=== PATIENT | male | born 1955 | race African-American/Black ===

== ENCOUNTER 2017-05-13 14:05 | Emergency (ER) | payer OTHER ==
[~2017-05-13] VITALS: Ht 180.3 cm; Wt 79.8 kg
[~2017-05-13 14:05] MED LIST: INSU70IN9 SC
[2017-05-13 14:09] VITALS: BP 149/88
== END 2017-05-13 18:40 | disposition left against medical advice (07) ==
LOC: ER 14:05 → EDBD 14:05 → ER 18:40
DX: M79.602 Pain in left arm (principal); Z53.21 Procedure and treatment not carried out due to patient leaving prior to being seen by health care provider

== ENCOUNTER 2019-10-28 10:08 | Inpatient (IN) | payer MEDICAID ==
[~2019-10-28] VITALS: Ht 180.3 cm; Wt 86.3 kg
[~2019-10-28 10:08] MED LIST changes: +ASPI-404 PO; +B-CO-5 OR; +BUSP15TA60 PO; +ERGO1CAP6 PO; +FERR1TAB17 PO; +FURO1TAB31 PO; +HCTZ25T PO; +ISOS20TA56 PO; +LEVO500T21 PO; +POTA-180 PO; +RANI300T PO; +SEVE800T8 PO; +SIMV-8 PO; +TRAZ50TA2 PO; +[UNRECOGNIZED DRUG - CODE]
[2019-10-28 11:01] LABS: Basophils # (auto) 0.1 10 ^3/uL (0-0.2); Basophils % (auto) 0.6 % (0.0-2.0); Eosinophils # (auto) 0.2 10 ^3/uL (0-0.8); Eosinophils % (auto) 1.8 % (0.0-7.0); Hematocrit 33.3 % (41.0-53.0); Lymphocytes # (auto) 2.1 10 ^3/uL (0.4-5.4); Lymphocytes % (auto) 22.7 % (10.0-50.0); Mean Corpuscular Hgb Conc. 33.1 g/dL (32.0-36.0); Mean Corpuscular Volume 99.8 fL (80.0-100.0); Monocytes # (auto) 0.6 10 ^3/uL (0-1.3); Monocytes % (auto) 6.5 % (0.0-12.0); Neutrophils # (auto) 6.3 10 ^3/uL (1.6-8.6); Neutrophils % (auto) 68.4 % (37.0-80.0); Platelet Count (auto) 265 10^3/uL (140-450); Red Blood Cells 3.34 10^6/uL (4.5-5.90); Red Cell Distribution Width 16.4 % (11.8-14.3); White Blood Cell 9.2 10^3/uL (4.4-10.8)
[2019-10-28 11:18] LABS: Albumin 3.4 g/dL (3.4-5.0); Calcium 8.2 mg/dL (8.5-10.1); Potassium 4.3 mmol/L (3.5-5.1)
[2019-10-28 11:23] LABS: BUN/Creatinine Ratio 7.7; Bilirubin, Total 0.4 mg/dL (0.2-1.0)
[2019-10-28] MEDS ORDERED: traMADol HCL 50 MG TAB PO PRN (12:45)
[2019-10-28] MEDS ORDERED: LABETALOL HCL 5 MG/ML ML 20ML VIAL IV PRN (12:45)
[2019-10-28] MEDS ORDERED: NITROGLYCERIN 0.4 MG SL TAB SL PRN (12:45)
[2019-10-28] MEDS ORDERED: DEXTROSE (50%) 50ML SYRG IV PRN (12:45)
[2019-10-28] MEDS ORDERED: LACTULOSE 20Gm/30ML SOLN PO PRN (12:45)
[2019-10-28] MEDS ORDERED: MORPHINE SULF INJ 2 MG/ML SYRINGE 1ML IV PRN (12:45)
[2019-10-28] MEDS ORDERED: ACETAMINOPHEN 500 MG TAB PO PRN (12:45)
[2019-10-28] MEDS ORDERED: PROMETHAZINE HCL 25 MG/ML 1ML IV PRN (12:45)
--- NOTE | 2019-10-28 15:45 | NUR ---
Patient resting in bed, receiving dialysis at this time, vs stable, will continue to monitor.
[2019-10-28] MEDS ORDERED: SODIUM CHL 0.9% 1000 ML BAG XX ONE (16:00)
[2019-10-28 16:44] VITALS: BP 136/82
[2019-10-28] MEDS: ISOSORBIDE DINITRATE 10 MG TAB PO SCH (17:00)
[2019-10-28] MEDS: ACCU-CHEK COMFORT CURVE STRIP VI SCH ×2 (18:16→20:18)
[2019-10-28] MEDS: SEVELAMER 800 MG TAB PO SCH (18:20)
--- NOTE | 2019-10-28 19:30 | NUR ---
Opening Shift Note Received report from henok Singh RN. Assumed care of patient, awake and alert, but confused. No S/S of distress/SOB or pain. Instructed on POC and to call for assist PRN, will continue to monitor for changes Q1hr and PRN.
[2019-10-28 20:00] VITALS: BP 139/79
--- NOTE | 2019-10-28 20:10 | NUR ---
Opening Shift Note Assumed care of patient, awake and alert. No S/S of distress/SOB or pain. Patient is on room air. Respirations even and unlabored. Patient refusing assessment at this time. Patient will not let this RN go near him and stated to "go away" and to "leave the room right now." Instructed on POC and to call for assist PRN, will continue to monitor for changes Q1hr and PRN. Addendum: 10/29/19 at 2310 by Harini Live RN Correct date is 10/29/19
[2019-10-28] MEDS: QUEtiapine FUMARATE 100 MG TAB PO SCH (21:51)
[2019-10-28] MEDS: ATORVASTATIN 20 MG TAB PO SCH (21:51)
[2019-10-28] MEDS: traZODone HCL 50 MG TAB PO SCH (21:52)
[2019-10-28] MEDS: busPIRone HCL 10 MG TAB PO SCH (21:52)
[2019-10-28 22:00] VITALS: BP 139/79
--- NOTE | 2019-10-28 23:00 | NUR ---
[employer] MONEY FOUND IN PATIENT'S POCKET WHILE CLEANING PATIENT AND CHANGING HIS CLOTHES, CLINICAL TRAINING COORDINATOR AND RN FOUND SOME MONEY IN PATIENT'S SOILED PANTS POCKET. CLINICAL TRAINING COORDINATOR, VENANCIO AND NURSE, RAÚL COUNTED MONEY AND WITNESSED BY ANOTHER RN, NONI. PATIENT IS SLEEPING AND CONFUSED AT THIS TIME AND UNABLE TO SIGN ENVELOPE. MONEY PLACED IN AN ENVELOPE, PICKED UP BY HOUSE SUPP WITH THE CORRECT AMOUNT AND CORRESPONDING DENOMINATIONS.
--- NOTE | 2019-10-29 00:35 | NUR ---
PATIENT REFUSED BLOOD SUGAR CHECK.
[2019-10-29] MEDS: ACCU-CHEK COMFORT CURVE STRIP VI SCH ×7 (03:42→23:39)
--- NOTE | 2019-10-29 04:07 | NUR ---
PATIENT REFUSED BLOOD SUGAR CHECK. PATIENT IS RESTING IN BED WITH EYES CLOSED BUT RESPONDS AND YELLS "NO NO NO" WHEN ASK TO CHECK BLOOD SUGAR. WILL MONITOR
[2019-10-29 05:45] VITALS: BP 136/52
[2019-10-29] MEDS: ISOSORBIDE DINITRATE 10 MG TAB PO SCH ×3 (06:38→16:55)
--- NOTE | 2019-10-29 07:39 | NUR ---
Opening Note Assumed pt care from [facility] nurse. Pt is a/ox4 with no s/s of distress or SOB. Pt is currently laying in bed with no complaints at this time. Pt is currently refusing assessment and blood sugar check stating "don't wake me...leave me alone". Will attempt to do assessment later. Sitter is present at bedside. Safety measures maintained with call light within reach, bed in lowest position and side rails up. Will continue to monitor.
--- NOTE | 2019-10-29 08:39 | NUR ---
Pt Refusing Assessment and VS At this time, pt is still refusing assessment and VS. Pt states "leave me alone, I'm trying to sleep... don't wake me". Both myself and the CONTROL CENTER OPERATOR provided education regarding purpose of assessment and VS; pt still refused. Will continue to monitor and attempt later.
[2019-10-29] MEDS: ENOXAPARIN SOD 30 MG/0.3 ML SYRINGE SC SCH (09:40)
[2019-10-29] MEDS: busPIRone HCL 10 MG TAB PO SCH ×2 (09:48→21:28)
[2019-10-29] MEDS: ASPirin 81 mg TAB PO SCH (09:48)
[2019-10-29] MEDS: FUROSEMIDE 40 MG TAB PO SCH (09:48)
--- NOTE | 2019-10-29 09:51 | NUR ---
Pt Frustrated and Angry Pt agreed to take medications, but stated "why are you making me do stuff...I don't like when people tell me to do stuff". Provided pt with education regarding care and need to provide care while in hospital. Pt still stated that "I still don't like to be told what to do". Will continue to monitor.
--- NOTE | 2019-10-29 11:42 | NUR ---
Pt Refusing 1200 Medications Provided ot with education regarding purpose of; pt still refused. Will notify MD of pt's refusal. Will continue to monitor.
--- NOTE | 2019-10-29 15:48 | NUR ---
Pt Refusing 1600 Accu Check Provided education regarding purpose of, pt still refused. Will continue to monitor.
[2019-10-29 17:00] VITALS: BP 114/74
[2019-10-29] MEDS: SEVELAMER 800 MG TAB PO SCH (17:52)
--- NOTE | 2019-10-29 17:52 | NUR ---
Patient Refused Renagel Discussed pt the next scheduled medication and provided pt with education and purpose of medication. Pt stated "whatever". When further asking pt if her wished to take the medication he said, "it's whatever". Told pt that it was a yes or no question as far as taking the medication pt stated "then no, I won't take it". Will continue to monitor and notify MD of pt's refusal and noncompliance.
--- NOTE | 2019-10-29 20:10 | NUR ---
Opening Shift Note Assumed care of patient, awake and alert. No S/S of distress/SOB or pain. Patient is on room air. Respirations even and unlabored. Patient refusing assessment at this time. Patient will not let this RN go near him and stated to "go away" and to "leave the room right now." Instructed on POC and to call for assist PRN, will continue to monitor for changes Q1hr and PRN. Addendum: 10/29/19 at 2315 by Harini Live RN Patient educated on purpose of assessment. Patient continues to refuse assessment.
--- NOTE | 2019-10-29 20:25 | NUR ---
Patient reports shortness of breath Patients states he feels short of breath. Patient's pulse oximeter reading on room air is 96%. Patient refuses to let this RN assess him and states "bring someone else in." Respiratory therapy paged at this time. Will continue to monitor.
--- NOTE | 2019-10-29 20:34 | NUR ---
Respiratory note: PAGED TO BEDSIDE BY RN. PT APPEARS SOB. OFF O2 POX 92-94% ON RA. HR IN 80-90S. PT STATES HE IS IN PAIN. RN ELISEO AND PSYCHOMETRIST LIANG CAME IN TO BEDSIDE TO ATTEMPT TO GET ASSESSMENT INFORMATION FROM THE PATIENT. PT IMMEDIATELY ANSWERS TO RN HER VERY RUDE AND SCREAMING AT HER TO "GET THE FUCK AWAY FROM HIM!". PT HAS BECAME MORE AGITATED DISMISSING US FROM ROOM. COMMUNICATED TO RNS LIANG AND ELISEO OF [facility] LIMITED FINDINGS AT THIS TIME. RNS AWARE I CAN BE PAGED TO REASSESS AT ANY TIME.
--- NOTE | 2019-10-29 20:40 | NUR ---
Endorsed care to [place] MAYBERRY. Report given. Patient has no S/S of distress/SOB.
--- NOTE | 2019-10-29 21:00 | NUR ---
OPENING NOTE ASSUMING ROLE OF CARE OF PATIENT AT THIS TIME. PATIENT NO LONGER AGITATED AT THIS TIME. PATIENT REQUESTING SLEEPING MEDICATION. PATIENT GIVEN MEDICATION FOR THE NIGHT. PATIENT ALSO PLACED ON 2L NC FOR COMFORT AT THIS TIME. PATIENT EDUCATED ON CHANGE IN STAFFING AND PLAN OF CARE FOR THE NIGHT. PATIENT VERBALIZED UNDERSTANDING. WILL CONTINUE TO MONITOR. BED LOWERED, CALL LIGHT WITHIN REACH, AND PATIENT WILL BE ROUNDED ON EVERY HOUR AND NEEDED. Addendum: 10/29/19 at 2139 by [place] QUINTERO RN VITALS WERE REFUSED AT THIS TIME. PATIENT STATES WANTING TO SLEEP. WILL ATTEMPT AT A LATER TIME. EKG WNL AND PATIENT SHOWING NO SIGN OF DISTRESS AT THIS TIME. WILL CONTINUE TO MONITOR.
[2019-10-29] MEDS: ATORVASTATIN 20 MG TAB PO SCH (21:28)
[2019-10-29] MEDS: traZODone HCL 50 MG TAB PO SCH (21:28)
[2019-10-29] MEDS: QUEtiapine FUMARATE 100 MG TAB PO SCH (21:28)
--- NOTE | 2019-10-29 22:37 | NUR ---
MD VALERIO AT BEDSIDE
--- NOTE | 2019-10-30 03:04 | NUR ---
REPORT GIVEN TO RADHA RN PATIENT RESTING COMFORTABLY AT THIS TIME.
[2019-10-30] MEDS: ACCU-CHEK COMFORT CURVE STRIP VI SCH ×5 (04:00→19:20)
[2019-10-30] MEDS: ISOSORBIDE DINITRATE 10 MG TAB PO SCH ×3 (06:51→17:53)
--- NOTE | 2019-10-30 07:30 | NUR ---
PT AWAKE, ORIENTED TO NAME, . DENIES DISCOMFORT AT MOMENT. PT IS UNCOOPERATIVE OF CARE. MINIMAL COOPERATION WITH ASSESSMENT. SITTER AT BEDSIDE FOR SAFETY. CALL LIGHT WITHIN REACH. BED LOCKED AND IN LOWEST POSITION, CALL LIGHT WITHIN REACH. WILL CONTINUE TO MONITOR.
[2019-10-30] MEDS: ENOXAPARIN SOD 30 MG/0.3 ML SYRINGE SC SCH (11:09)
[2019-10-30] MEDS: FUROSEMIDE 40 MG TAB PO SCH (11:10)
[2019-10-30] MEDS: ASPirin 81 mg TAB PO SCH (11:10)
[2019-10-30] MEDS: busPIRone HCL 10 MG TAB PO SCH ×2 (11:10→21:08)
[2019-10-30] MEDS ORDERED: LORazepam 2MG/ML-1ML VIAL IV PRN (14:15)
--- NOTE | 2019-10-30 15:14 | NUR ---
PT SUSTAINED FALL WHILE IN RESTROOM, PT REPORTS HAVING FALLEN ON KNEES, DENIES HAVING HIT HEAD. PT SHOWS GENERALIZED WEAKNESS, PT POSITION BACK IN BED. PT DENIES PAIN TO KNEES UPON ROM. CHARGE NURSE DALLIN MADE AWARE OF EVENT, PT DENIES XR INTERVENTION OF KNEES, DR. VALERIO MADE AWARE OF EVENT, NO FURTHER ORDERS RECEIVED. V/S: 97.9, 92, 20, 96% ROOM AIR, 131/71 WILL CONTINUE TO MONITOR.
[2019-10-30] MEDS: SEVELAMER 800 MG TAB PO SCH (17:54)
--- NOTE | 2019-10-30 20:00 | NUR ---
OPENING NOTE RECEIVED REPORT FROM DAYSHIFT RN. ASSUMING ROLE OF CARE OF PATIENT AT THIS TIME. PATIENT SHOWING NO SIGN OF DISTRESS, SHORTNESS OF BREATH, AND PATIENT DENIES ANY PAIN AT THIS TIME. PATIENT EDUCATED ON PLAN OF CARE FOR THE NIGHT AND PATIENT VERBALIZED UNDERSTANDING. PATIENT AT THIS TIME STILL REFUSING ALL BLOOD DRAWS AND ONLY WANTS MEDICATION TO HELP HIM SLEEP. BED LOWERED, CALL LIGHT WITHIN REACH, AND PATIENT WILL BE ROUNDED ON EVERY HOUR AND NEEDED.
--- NOTE | 2019-10-30 20:52 | NUR ---
PT AT THIS TIME REFUSING ALL BLOOD DRAWS AND ACCUCHECKS PT STATES THAT "I ALREADY TOLD YOU. ONLY ONCE IN THE MORNING." WILL ATTEMPT AT A LATER TIME.
[2019-10-30] MEDS: QUEtiapine FUMARATE 100 MG TAB PO SCH (21:08)
[2019-10-30] MEDS: ATORVASTATIN 20 MG TAB PO SCH (21:08)
[2019-10-30] MEDS: traZODone HCL 50 MG TAB PO SCH (21:08)
--- NOTE | 2019-10-30 21:45 | NUR ---
MD VALERIO AT BEDSIDE.
[2019-10-30 22:00] VITALS: BP 141/81
[2019-10-31] MEDS: ACCU-CHEK COMFORT CURVE STRIP VI SCH ×6 (04:00→20:00)
[2019-10-31] MEDS: ISOSORBIDE DINITRATE 10 MG TAB PO SCH ×3 (06:05→18:36)
[2019-10-31] MEDS ORDERED: SODIUM CHL 0.9% 1000 ML BAG XX ONE (06:15)
--- NOTE | 2019-10-31 07:15 | NUR ---
HEMODIALYSIS IN PROGRESS. PT AWAKE, ORIENTED, RESPONSIVE TO COMMANDS. MINIMAL COOPERATION WITH CARE. TOLERATING HD THERAPY WELL AT MOMENT. ADVENTURE CHALLENGE INSTRUCTOR AT BEDSIDE, SITTER AT BEDSIDE. BED LOCKED AND IN LOWEST POSITION, CALL LIGHT WITHIN REACH. WILL CONTINUE TO MONITOR.
[2019-10-31 07:28] LABS: Basophils # (auto) 0 10 ^3/uL (0-0.2); Basophils % (auto) 0.3 % (0.0-2.0); Eosinophils # (auto) 0.1 10 ^3/uL (0-0.8); Hematocrit 27.9 % (41.0-53.0); Hemoglobin 9.3 g/dL (13.5-17.5); Lymphocytes # (auto) 1.6 10 ^3/uL (0.4-5.4); Lymphocytes % (auto) 18.7 % (10.0-50.0); Mean Corpuscular Hemoglobin 32.8 pg (28.0-32.0); Mean Corpuscular Hgb Conc. 33.4 g/dL (32.0-36.0); Mean Corpuscular Volume 98.1 fL (80.0-100.0); Monocytes # (auto) 0.7 10 ^3/uL (0-1.3); Monocytes % (auto) 8.3 % (0.0-12.0); Neutrophils # (auto) 6.2 10 ^3/uL (1.6-8.6); Neutrophils % (auto) 71.7 % (37.0-80.0); Platelet Count (auto) 215 10^3/uL (140-450); Red Blood Cells 2.84 10^6/uL (4.5-5.90); Red Cell Distribution Width 16.2 % (11.8-14.3); White Blood Cell 8.6 10^3/uL (4.4-10.8)
[2019-10-31 07:53] LABS: BUN/Creatinine Ratio 7.2; Calcium 8.2 mg/dL (8.5-10.1); Potassium 4.4 mmol/L (3.5-5.1)
[2019-10-31 09:00] VITALS: BP 146/84
--- NOTE | 2019-10-31 09:35 | NUR ---
DIALYSIS COMPLETED. 3000ml OUTPUT.
[2019-10-31] MEDS: ENOXAPARIN SOD 30 MG/0.3 ML SYRINGE SC SCH ×2 (10:00→12:43)
[2019-10-31] MEDS: busPIRone HCL 10 MG TAB PO SCH ×3 (10:00→21:58)
[2019-10-31] MEDS: FUROSEMIDE 40 MG TAB PO SCH ×2 (10:00→12:49)
[2019-10-31] MEDS: ASPirin 81 mg TAB PO SCH ×2 (10:00→12:42)
--- NOTE | 2019-10-31 10:40 | NUR ---
Attempted PT eval but pt refused. Will try again later.
--- NOTE | 2019-10-31 11:20 | NUR ---
1040: PT VOICING TO LEAVE AMA, PT ORIENTED TO NAME, DATE, PLACE. PT REPORTS "DIALYSIS IS DONE AND I FEEL BETTER" EXPLAINED TO PT TO WAIT FOR DR. VALERIO TO COME BY AND SEE HIM FIRST. PT REPORTS "I HAVE TO GO HOME AND TAKE CARE OF MY THAT CANNOT WALK" CHARGE NURSE MADE AWARE OF SITUATION. DR. VALERIO MADE AWARE WELL. PT REFUSES MORNING MEDICATIONS, REFUSED P.T.
--- NOTE | 2019-10-31 12:58 | NUR ---
EXPLAINED TO PT'S RISKS OF LEAVING AMA, INABILITY TO PROVIDE TRANSPORTATION IF LEAVES AMA. PT REPORTS "AT MOMENT, NOT LEAVING AMA" WILL WAIT FOR MD TO ROUND. PT HAS GENERALIZED WEAKNESS. PT MILDLY COOPERATIVE OF CARE, ADMINISTERED MORNING MEDICATIONS, TOLERATED WELL. WILL CONTINUE TO MONITOR.
[2019-10-31 13:00] VITALS: BP 157/89
[2019-10-31 17:00] VITALS: BP 132/77
[2019-10-31] MEDS: SEVELAMER 800 MG TAB PO SCH (18:36)
--- NOTE | 2019-10-31 19:40 | NUR ---
Opening Shift Note Assumed care of patient, awake and alert. No S/S of distress/SOB or pain. Sitter at bedside for safety. Fall and safety precautions in place. Call light within reach and able to use. Instructed on POC and to call for assist PRN, will continue to monitor for changes Q1hr and PRN.
--- NOTE | 2019-10-31 20:00 | NUR ---
ACCU CHECK REFUSAL PATIENT REFUSING ACCU CHECK. PATIENT STATES TO LEAVE HIM ALONE AND THAT HE IS UNWILLING TO HAVE HIS BLOOD SUGAR CHECKED, HOWEVER PATIENT AGREES TO OTHER SCHEDULED MEDICATIONS. PATIENT EDUCATED ON IMPORTANCE/INDICATION FOR BLOOD SUGAR MONITORING, PATIENT VERBALIZED UNDERSTANDING AND CONTINUES TO REFUSE. EDUCATED REINFORCED AGAIN AND PATIENT CONTINUES TO REFUSE. WILL CONTINUE TO MONITOR.
[2019-10-31 21:32] VITALS: BP 132/87
[2019-10-31] MEDS: traZODone HCL 50 MG TAB PO SCH (21:58)
[2019-10-31] MEDS: QUEtiapine FUMARATE 100 MG TAB PO SCH (21:59)
[2019-10-31] MEDS: ATORVASTATIN 20 MG TAB PO SCH (21:59)
[2019-11-01] MEDS: ACCU-CHEK COMFORT CURVE STRIP VI SCH ×4 (04:00→12:15)
[2019-11-01 05:19] VITALS: BP 141/77
--- NOTE | 2019-11-01 06:07 | NUR ---
morning med and lab refusal: Patient is refusing morning med scheduled for 0700. Patient educated on indication for medication and importance of administration. Patient verbalized understanding and continues to refuse. Education reinforced and patient continues to refuse with, "get the hell out." Additionally, patient is refusing AM labs. Will continue to monitor.
[2019-11-01] MEDS: ISOSORBIDE DINITRATE 10 MG TAB PO SCH ×2 (07:00→11:13)
--- NOTE | 2019-11-01 08:55 | NUR ---
DR. TRAN IN TO EVALUATE PT.
[2019-11-01 09:00] VITALS: BP 137/80
[2019-11-01] MEDS ORDERED: HALOPERIDOL LACTATE 5 MG/ML INJ VIAL IM PRN (09:30)
--- NOTE | 2019-11-01 09:30 | NUR ---
PT NON-COOPERATIVE OF CARE REFUSED MRI, AND BLOOD DRAWS.
[2019-11-01] MEDS: ASPirin 81 mg TAB PO SCH (11:11)
[2019-11-01] MEDS: FUROSEMIDE 40 MG TAB PO SCH (11:12)
[2019-11-01] MEDS: ENOXAPARIN SOD 30 MG/0.3 ML SYRINGE SC SCH (11:13)
[2019-11-01] MEDS: busPIRone HCL 10 MG TAB PO SCH (11:13)
[2019-11-01 12:48] VITALS: BP 120/54
--- NOTE | 2019-11-01 14:21 | NUR ---
WHILE HYGIENE CARE PROVIDED, SACRAL PUNCTURE WOUND NOTED. PT COOPERATES WITH ASSESSMENT AT MOMENT. WOUND CLEANSED, PICTURE TAKEN, Z-GUARD APPLIED WITH OPTIFOAM IN PLACE.
--- NOTE | 2019-11-01 14:45 | NUR ---
DR. VALERIO STATES TALKED TO DR. TRAN REGARDING PT'S CONDITION STATUS. PER MD TO CALL DR. TRAN FOR CLEARANCE PRIOR TO DC. DR. TRAN PAGED.
[2019-11-01 16:15] VITALS: BP 138/84
[2019-11-01 16:58] VITALS: BP 138/84
--- NOTE | 2019-11-01 17:40 | NUR ---
DR. TRAN CLEARED PT FOR DC. DISCHARGE INSTRUCTIONS GIVEN TO PT, PT VERBALIZED UNDERSTANDING FOR FOLLOW UP APPOINTMENT AND CONTINUATION OF HOME MEDICATIONS. ALL BELONGING AND MONETARY BELONGINGS RETURNED TO PT. EDUCATIONAL MATERIAL PROVIDED, ALL QUESTIONS AND CONCERNS ADDRESSED. IV CATHETER DC'D CATHETER INTACT, NO PHLEBITIS, TELE BOX REMOVED AND RETURNED TO TELE DEPT. PT SAFELY ESCORTED OUT OF UNIT VIA WHEELCHAIR, NO S/S OF DISTRESS.
== END 2019-11-01 18:00 | disposition home or self-care (01) | DRG 420 ==
LOC: EDBD 10:08 → ER 10:08 → TELE 10:09 → TELE-EAST 14:18
PROVIDERS: ADMIT Internal Medicine; ATTEND Internal Medicine
DX: E11.649 Type 2 diabetes mellitus with hypoglycemia without coma (principal); G93.41 Metabolic encephalopathy; I13.2 Hypertensive heart and chronic kidney disease with heart failure and with stage 5 chronic kidney disease, or end stage renal disease; I50.32 Chronic diastolic (congestive) heart failure; N18.6 End stage renal disease; D63.8 Anemia in other chronic diseases classified elsewhere; E11.22 Type 2 diabetes mellitus with diabetic chronic kidney disease; E78.5 Hyperlipidemia, unspecified; I82.621 Acute embolism and thrombosis of deep veins of right upper extremity; F41.8 Other specified anxiety disorders; Z53.20 Procedure and treatment not carried out because of patient's decision for unspecified reasons; E66.3 Overweight; Z82.49 Family history of ischemic heart disease and other diseases of the circulatory system; Z99.2 Dependence on renal dialysis; Z83.3 Family history of diabetes mellitus; Z81.1 Family history of alcohol abuse and dependence; Z90.49 Acquired absence of other specified parts of digestive tract; Z68.26 Body mass index [BMI] 26.0-26.9, adult; Z79.899 Other long term (current) drug therapy
CPT/HCPCS: 36415; 70450; 71045; 80048; 80053; 82550; 82962; 83036; 84155; 84165; 84484; 85025; 85652; 87081; 90935; 93005; G0378; J1642

== ENCOUNTER 2019-11-20 18:13 | Emergency (ER) | payer MEDICAID ==
[~2019-11-20] VITALS: Ht 180.3 cm; Wt 90.7 kg
[~2019-11-20 18:13] MED LIST changes: -LEVO500T21 PO
[2019-11-20] MEDS ORDERED: MORPHINE SULFATE 4 MG/ML SYR/VIAL IV ONE (18:45)
[2019-11-20] MEDS ORDERED: ONDANSETRON HCL 4 MG/2 ML VIAL IV ONE (18:45)
[2019-11-20 19:11] LABS: Basophils # (auto) 0 10 ^3/uL (0-0.2); Basophils % (auto) 0.5 % (0.0-2.0); Eosinophils # (auto) 0.1 10 ^3/uL (0-0.8); Eosinophils % (auto) 1.2 % (0.0-7.0); Hemoglobin 11.7 g/dL (13.5-17.5); Lymphocytes # (auto) 1.8 10 ^3/uL (0.4-5.4); Lymphocytes % (auto) 20.4 % (10.0-50.0); Mean Corpuscular Hemoglobin 32.3 pg (28.0-32.0); Mean Corpuscular Hgb Conc. 31.6 g/dL (32.0-36.0); Mean Corpuscular Volume 102.2 fL (80.0-100.0); Monocytes # (auto) 0.7 10 ^3/uL (0-1.3); Monocytes % (auto) 7.9 % (0.0-12.0); Neutrophils # (auto) 6.1 10 ^3/uL (1.6-8.6); Nucleated Red Blood Cells % 0.1 %; Platelet Count (auto) 226 10^3/uL (140-450); Red Blood Cells 3.62 10^6/uL (4.5-5.90); Red Cell Distribution Width 17.9 % (11.8-14.3); White Blood Cell 8.7 10^3/uL (4.4-10.8)
[2019-11-20 19:32] LABS: INR 1.15 (0.9-1.15); Partial Thromboplastin Time 30.5 sec (23.64-32.05)
[2019-11-20 19:37] LABS: Albumin 3.6 g/dL (3.4-5.0); Calcium 7.7 mg/dL (8.5-10.1); Potassium 4.5 mmol/L (3.5-5.1)
[2019-11-20 19:42] LABS: Bilirubin, Total 0.4 mg/dL (0.2-1.0); Total Protein 7.8 g/dL (6.4-8.2)
[2019-11-20 20:00] VITALS: BP 158/93
[2019-11-20] MEDS ORDERED: HYDROcodone-ACET 5/325MG TAB PO ONE (21:15)
== END 2019-11-20 21:40 | disposition home or self-care (01) ==
LOC: EDBD 18:13 → ER 18:13
DX: R18.8 Other ascites (principal); I12.0 Hypertensive chronic kidney disease with stage 5 chronic kidney disease or end stage renal disease; E11.22 Type 2 diabetes mellitus with diabetic chronic kidney disease; N18.6 End stage renal disease; Z99.2 Dependence on renal dialysis
CPT/HCPCS: 36415; 71045; 74176; 80053; 82150; 83605; 83690; 83735; 84484; 85025; 85610; 85730; 93005; 96374; 96375; 99285; J2270; J2405

== ENCOUNTER 2020-01-28 18:28 | Inpatient (IN) | payer MEDICAID ==
[~2020-01-28] VITALS: Ht 210.8 cm; Wt 93.9 kg
[2020-01-28 20:24] LABS: Basophils # (auto) 0 10 ^3/uL (0-0.2); Basophils % (auto) 0.5 % (0.0-2.0); Eosinophils # (auto) 0.2 10 ^3/uL (0-0.8); Hematocrit 30.7 % (41.0-53.0); Hemoglobin 10.1 g/dL (13.5-17.5); Lymphocytes # (auto) 1.6 10 ^3/uL (0.4-5.4); Lymphocytes % (auto) 21.9 % (10.0-50.0); Mean Corpuscular Hemoglobin 30.9 pg (28.0-32.0); Mean Corpuscular Hgb Conc. 32.8 g/dL (32.0-36.0); Mean Corpuscular Volume 94.1 fL (80.0-100.0); Monocytes # (auto) 0.9 10 ^3/uL (0-1.3); Monocytes % (auto) 12.2 % (0.0-12.0); Neutrophils # (auto) 4.6 10 ^3/uL (1.6-8.6); Neutrophils % (auto) 62.4 % (37.0-80.0); Platelet Count (auto) 153 10^3/uL (140-450); Red Blood Cells 3.26 10^6/uL (4.5-5.90); White Blood Cell 7.4 10^3/uL (4.4-10.8)
[2020-01-28 20:27] LABS: Red Cell Distribution Width 22.7 % (11.8-14.3)
[2020-01-28 20:46] LABS: Alanine Aminotransferase 53 U/L (16-61); Albumin 3.4 g/dL (3.4-5.0); Anion Gap 13 (5-15); Aspartate Aminotransferase 32 U/L (15-37); BUN/Creatinine Ratio 7.6; Blood Alcohol < 3.0 mg/dL (0-5); Blood Urea Nitrogen 52 mg/dL (7-18); Calcium 7.7 mg/dL (8.5-10.1); Carbon Dioxide 18 mmol/L (21-32); Chloride 106 mmol/L (98-107); GFR African American 10 mL/min; GFR Non-African American 9 mL/min; Glucose 123 mg/dL (74-106); Potassium 3.6 mmol/L (3.5-5.1); Sodium 137 mmol/L (136-145)
[2020-01-28 20:51] LABS: Alkaline Phosphatase 189 U/L (45-117); Bilirubin, Total 0.4 mg/dL (0.2-1.0); Total Protein 7.6 g/dL (6.4-8.2)
[2020-01-29] MEDS ORDERED: ACETAMINOPHEN 500 MG TAB PO PRN (02:15)
[2020-01-29] MEDS ORDERED: ACETAMINOPHEN 325 MG TAB PO PRN (02:15)
[2020-01-29] MEDS ORDERED: DOCUSATE SOD 100 MG CAP PO PRN (02:15)
[2020-01-29] MEDS ORDERED: NITROGLYCERIN 0.4 MG SL TAB SL PRN (02:15)
[2020-01-29] MEDS ORDERED: ONDANSETRON HCL 4 MG/2 ML VIAL IV PRN (02:15)
[2020-01-29] MEDS ORDERED: MORPHINE SULF INJ 2 MG/ML SYRINGE 1ML IV PRN (02:15)
[2020-01-29 02:47] LABS: Amphetamine Screen, Urine NEGATIVE (NEGATIVE); Barbiturate Scree,Urine NEGATIVE (NEGATIVE); Benzodiazephine Screen, Urine NEGATIVE (NEGATIVE); Cannabinoid Screen, Urine NEGATIVE (NEGATIVE); Cocaine Screen, Urine NEGATIVE (NEGATIVE); Opiate Scree,Urine NEGATIVE (NEGATIVE); Phencyclidine Screen, Urine NEGATIVE (NEGATIVE)
[2020-01-29 03:13] LABS: Urine Bacteria MANY /hpf (None Seen); Urine Blood 2+ /uL (Negative); Urine WBC 3240 /hpf (0 - 3); Urine WBC Clumps PRESENT /hpf (None Seen)
[2020-01-29 03:14] LABS: Urine Specific Gravity 1.018 (1.001-1.035)
[2020-01-29] MEDS ORDERED: ALBUTEROL SULF HFA 90MCG INH 200DOSE IN SCH (06:00)
[2020-01-29] MEDS ORDERED: ZINC SULFATE 220mg CAP or TAB PO SCH (10:00)
[2020-01-29] MEDS ORDERED: ASCORBIC ACID 1,000 MG TAB PO SCH (10:00)
[2020-01-29] MEDS ORDERED: DOXYCYCLINE 100 MG TAB/CAP PO SCH (10:00)
[2020-01-29] MEDS: CHOLECALCIFEROL (VITD3) 1,000IU=25mCg TAB PO SCH (11:00)
[2020-01-29] MEDS: HEPARIN SODIUM (PORCINE) 5000 UNITS/ML 1ML VIAL SC SCH ×2 (11:00→22:21)
[2020-01-29] MEDS: HYDROcodone-ACET 5/325MG TAB PO PRN ×3 (11:25→22:22)
[2020-01-29] MEDS ORDERED: VANCOMYCIN PER PHARMACY 0 MG IV SCH (15:15)
[2020-01-29] MEDS ORDERED: DEXTROSE (50%) 50ML SYRG IV PRN (15:15)
[2020-01-29] MEDS ORDERED: VANCOMYCIN 1GM/250ML 250 ML IV ONE (17:00)
[2020-01-29] MEDS: ACCU-CHEK COMFORT CURVE STRIP VI SCH ×2 (17:34→22:00)
[2020-01-29] MEDS: InsuLIN REG 1unit/0.01ml Soln (100units/ml) SC SCH ×2 (17:34→22:00)
[2020-01-29 22:00] VITALS: BP 141/94
[2020-01-29] MEDS: PIPERACILLIN-TAZOB 2.25GM 50 ML IV SCH (22:22)
[2020-01-29 23:46] VITALS: BP 150/81
[2020-01-30] MEDS: HYDROcodone-ACET 5/325MG TAB PO PRN ×4 (03:15→20:52)
[2020-01-30 05:00] VITALS: BP 153/91
[2020-01-30] MEDS: PIPERACILLIN-TAZOB 2.25GM 50 ML IV SCH ×3 (06:11→21:47)
[2020-01-30] MEDS: InsuLIN REG 1unit/0.01ml Soln (100units/ml) SC SCH ×4 (06:11→21:56)
[2020-01-30] MEDS: ACCU-CHEK COMFORT CURVE STRIP VI SCH ×4 (06:11→21:55)
[2020-01-30] MEDS ORDERED: SODIUM CHL 0.9% 1000 ML BAG XX ONE ×2 (07:00→08:30)
[2020-01-30 09:00] VITALS: BP 158/88
[2020-01-30] MEDS ORDERED: cefTRIAXone 1GM/50ML D5W 50 ML IV SCH (09:00)
[2020-01-30] MEDS: HEPARIN SODIUM (PORCINE) 5000 UNITS/ML 1ML VIAL SC SCH ×2 (10:40→21:53)
[2020-01-30] MEDS: CHOLECALCIFEROL (VITD3) 1,000IU=25mCg TAB PO SCH (10:40)
[2020-01-30 13:01] VITALS: BP 144/96
[2020-01-30] MEDS ORDERED: VANCOMYCIN 1GM/250ML 250 ML IV ONE (17:00)
[2020-01-30] MEDS ORDERED: EPOETIN ALFA 10,000 UNIT/1 ML VIAL SC ONE ×2 (21:00)
[2020-01-30 21:38] VITALS: BP 156/98
[2020-01-31 00:51] LABS: Amphetamine Screen, Urine NEGATIVE (NEGATIVE); Barbiturate Scree,Urine NEGATIVE (NEGATIVE); Benzodiazephine Screen, Urine NEGATIVE (NEGATIVE); Cannabinoid Screen, Urine NEGATIVE (NEGATIVE); Cocaine Screen, Urine NEGATIVE (NEGATIVE); Opiate Scree,Urine NEGATIVE (NEGATIVE); Phencyclidine Screen, Urine NEGATIVE (NEGATIVE)
[2020-01-31] MEDS: HYDROcodone-ACET 5/325MG TAB PO PRN ×3 (01:37→21:43)
[2020-01-31] MEDS: ACCU-CHEK COMFORT CURVE STRIP VI SCH ×4 (06:32→21:46)
[2020-01-31] MEDS: PIPERACILLIN-TAZOB 2.25GM 50 ML IV SCH ×3 (06:32→21:36)
[2020-01-31] MEDS: InsuLIN REG 1unit/0.01ml Soln (100units/ml) SC SCH ×4 (06:32→21:35)
[2020-01-31] MEDS ORDERED: IODIXANOL 320MG/ML 100ML BTL IV ONE ×2 (07:52→11:09)
[2020-01-31 08:39] VITALS: BP 150/86
[2020-01-31] MEDS ORDERED: MIDAZOLAM HCL 1MG/1ML-2 ML VIAL ONE (09:07)
[2020-01-31] MEDS ORDERED: fentaNYL CITRATE 100 MCG/2 ML VL ONE ×2 (09:07→11:20)
[2020-01-31] MEDS ORDERED: LIDOCAINE 2%HCL (LOCAL ANESTH.) INJ 20ML MDV ONE (09:36)
[2020-01-31] MEDS: HEPARIN SODIUM (PORCINE) 5000 UNITS/ML 1ML VIAL SC SCH ×2 (09:42→21:36)
[2020-01-31] MEDS: CHOLECALCIFEROL (VITD3) 1,000IU=25mCg TAB PO SCH (10:00)
[2020-01-31 13:00] VITALS: BP 147/96
[2020-01-31 14:57] LABS: Basophils # (auto) 0.1 10 ^3/uL (0-0.2); Basophils % (auto) 0.9 % (0.0-2.0); Eosinophils # (auto) 0.1 10 ^3/uL (0-0.8); Eosinophils % (auto) 1.4 % (0.0-7.0); Hematocrit 35.7 % (41.0-53.0); Hemoglobin 11.8 g/dL (13.5-17.5); Lymphocytes # (auto) 1.8 10 ^3/uL (0.4-5.4); Lymphocytes % (auto) 28.3 % (10.0-50.0); Mean Corpuscular Hemoglobin 31.3 pg (28.0-32.0); Mean Corpuscular Hgb Conc. 32.9 g/dL (32.0-36.0); Mean Corpuscular Volume 95.1 fL (80.0-100.0); Monocytes # (auto) 0.6 10 ^3/uL (0-1.3); Monocytes % (auto) 9.9 % (0.0-12.0); Neutrophils # (auto) 3.8 10 ^3/uL (1.6-8.6); Neutrophils % (auto) 59.5 % (37.0-80.0); Nucleated Red Blood Cells % 0.4 %; Platelet Count (auto) 194 10^3/uL (140-450); Red Blood Cells 3.76 10^6/uL (4.5-5.90); White Blood Cell 6.4 10^3/uL (4.4-10.8)
[2020-01-31 15:08] LABS: Red Cell Distribution Width 22.4 % (11.8-14.3)
[2020-01-31 15:23] LABS: INR 1.25 (0.9-1.15)
[2020-01-31 15:27] LABS: BUN/Creatinine Ratio 9.8; Calcium 7.9 mg/dL (8.5-10.1)
[2020-01-31 16:04] LABS: Potassium 6.1 mmol/L (3.5-5.1)
[2020-01-31 17:00] VITALS: BP 137/81
[2020-01-31] MEDS ORDERED: VANCOMYCIN 1GM/250ML 250 ML IV ONE (17:00)
[2020-01-31 20:00] VITALS: BP 145/87
[2020-01-31 22:00] VITALS: BP 145/87
[2020-02-01] MEDS: PIPERACILLIN-TAZOB 2.25GM 50 ML IV SCH ×3 (06:00→20:58)
[2020-02-01] MEDS: ACCU-CHEK COMFORT CURVE STRIP VI SCH ×4 (06:41→21:08)
[2020-02-01] MEDS: InsuLIN REG 1unit/0.01ml Soln (100units/ml) SC SCH ×4 (06:41→21:08)
[2020-02-01 09:00] VITALS: BP 142/83
[2020-02-01] MEDS: CHOLECALCIFEROL (VITD3) 1,000IU=25mCg TAB PO SCH (09:21)
[2020-02-01] MEDS: HYDROcodone-ACET 5/325MG TAB PO PRN ×3 (09:22→20:50)
[2020-02-01] MEDS: HEPARIN SODIUM (PORCINE) 5000 UNITS/ML 1ML VIAL SC SCH ×2 (09:23→20:59)
[2020-02-01] MEDS ORDERED: SODIUM CHL 0.9% 1000 ML BAG XX ONE (10:45)
[2020-02-01 13:30] VITALS: BP 148/79
[2020-02-01 14:23] LABS: BUN/Creatinine Ratio 9.4; Calcium 8.1 mg/dL (8.5-10.1); Potassium 4.6 mmol/L (3.5-5.1)
[2020-02-01] MEDS ORDERED: CIPR-173 PO (15:11)
[2020-02-01 17:00] VITALS: BP 132/72
[2020-02-01 20:00] VITALS: BP 158/66
[2020-02-01] MEDS ORDERED: EPOETIN ALFA 10,000 UNIT/1 ML VIAL SC ONE (21:00)
[2020-02-01 22:00] VITALS: BP 131/84
[2020-02-02] MEDS: HYDROcodone-ACET 5/325MG TAB PO PRN ×4 (01:12→20:28)
[2020-02-02] MEDS: ACCU-CHEK COMFORT CURVE STRIP VI SCH ×4 (05:22→20:29)
[2020-02-02] MEDS: InsuLIN REG 1unit/0.01ml Soln (100units/ml) SC SCH ×4 (05:22→20:30)
[2020-02-02] MEDS: PIPERACILLIN-TAZOB 2.25GM 50 ML IV SCH ×3 (05:23→20:28)
[2020-02-02 09:00] VITALS: BP 150/91
[2020-02-02] MEDS: CHOLECALCIFEROL (VITD3) 1,000IU=25mCg TAB PO SCH (10:00)
[2020-02-02] MEDS: HEPARIN SODIUM (PORCINE) 5000 UNITS/ML 1ML VIAL SC SCH ×2 (10:00→20:29)
[2020-02-02 13:00] VITALS: BP 127/66
[2020-02-02 17:00] VITALS: BP 138/95
[2020-02-02 20:00] VITALS: BP 158/66
[2020-02-03] MEDS: ACCU-CHEK COMFORT CURVE STRIP VI SCH ×3 (06:23→17:00)
[2020-02-03] MEDS: InsuLIN REG 1unit/0.01ml Soln (100units/ml) SC SCH ×3 (06:23→17:00)
[2020-02-03] MEDS: PIPERACILLIN-TAZOB 2.25GM 50 ML IV SCH ×2 (06:23→14:50)
[2020-02-03 09:00] VITALS: BP 138/71
[2020-02-03] MEDS: HEPARIN SODIUM (PORCINE) 5000 UNITS/ML 1ML VIAL SC SCH (10:00)
[2020-02-03] MEDS: CHOLECALCIFEROL (VITD3) 1,000IU=25mCg TAB PO SCH (10:06)
[2020-02-03 13:00] VITALS: BP 179/84
[2020-02-03 17:00] VITALS: BP 126/72
[2020-02-03] MEDS ORDERED: VANCOMYCIN 1GM/250ML 250 ML IV ONE (17:00)
[2020-02-03 19:07] VITALS: BP 126/72
== END 2020-02-03 19:49 | DRG 951 ==
LOC: ER 18:28 → TELE 18:29 → TELE-EAST 01-29 19:53 → TELE-WESTW 01-30 23:47
PROVIDERS: ADMIT Hospitalist; ATTEND Hospitalist
PROC: 057 Upper Veins, Dilation (ICD-10-PCS; principal; 2020-01-31)
PROC: B51W1ZZ Fluoroscopy of Dialysis Shunt/Fistula using Low Osmolar Contrast (ICD-10-PCS; 2020-01-31)
PROC: 5A1D70Z Performance of Urinary Filtration, Intermittent, Less than 6 Hours Per Day (ICD-10-PCS; 2020-01-31)
PROC: 5A1D70Z Performance of Urinary Filtration, Intermittent, Less than 6 Hours Per Day (ICD-10-PCS; 2020-02-01)
PROC: 5A1D70Z Performance of Urinary Filtration, Intermittent, Less than 6 Hours Per Day (ICD-10-PCS; 2020-02-03)
DX: I13.11 Hypertensive heart and chronic kidney disease without heart failure, with stage 5 chronic kidney disease, or end stage renal disease (principal); G93.41 Metabolic encephalopathy; L89.310 Pressure ulcer of right buttock, unstageable; E11.22 Type 2 diabetes mellitus with diabetic chronic kidney disease; L89.320 Pressure ulcer of left buttock, unstageable; N18.6 End stage renal disease; T82.868A Thrombosis due to vascular prosthetic devices, implants and grafts, initial encounter; N39.0 Urinary tract infection, site not specified; T82.41XA Breakdown (mechanical) of vascular dialysis catheter, initial encounter; D63.1 Anemia in chronic kidney disease; B95.1 Streptococcus, group B, as the cause of diseases classified elsewhere; N25.81 Secondary hyperparathyroidism of renal origin; E78.5 Hyperlipidemia, unspecified; Z72.0 Tobacco use; Z99.2 Dependence on renal dialysis; Z90.49 Acquired absence of other specified parts of digestive tract; Z82.49 Family history of ischemic heart disease and other diseases of the circulatory system; Z83.3 Family history of diabetes mellitus; Z79.84 Long term (current) use of oral hypoglycemic drugs; Z20.828 Contact with and (suspected) exposure to other viral communicable diseases
CPT/HCPCS: 36415; 36903; 71045; 76000; 76937; 76942; 80048; 80053; 80202; 80307; 80320; 81001; 82962; 83735; 84484; 85025; 85610; 87040; 87081; 87086; 87804; 87880; 90935; 93005; 97163; 97530; 99152; 99153; G0378; J0885; J1642; J1815; J2250; J2543; Q9967